=== PATIENT | female | born 1940 | race Caucasian/White ===

== ENCOUNTER → 2017-03-05 | Outpatient (CLI) | payer OTHER ==
[~2017-03-05] MED LIST: ATOR10TA9 PO; CALC1CAP8 PO; CHOL200074 PO; CLON0.12 PO; ESCI20TA10 PO; HYDR-3237 PO; IBAN150T PO; LEVO50TA5 PO; LEVO75TA5 PO; OLME40TA12 PO; OMEP-110 PO; PROP80CA39 PO; VALA500T4 PO; VIT1TABL32 PO; ZOLP10TA5 PO
== END | disposition home or self-care (01) ==
LOC: CFH 11:31
PROVIDERS: ATTEND Family Medicine
DX: Z13.820 Encounter for screening for osteoporosis (principal); Z12.31 Encounter for screening mammogram for malignant neoplasm of breast; M85.80 Other specified disorders of bone density and structure, unspecified site; N95.0 Postmenopausal bleeding
CPT/HCPCS: 76830; 77080; G0202

== ENCOUNTER 2017-04-14 08:36 | Inpatient (IN) | payer OTHER, MEDICARE ==
[~2017-04-14] VITALS: Ht 162.6 cm; Wt 75.7 kg
[2017-04-14 08:57] LABS: BASOPHILS # (AUTO) 0.02 x10^3/uL (0-0.1); BASOPHILS % (AUTO) 0 % (0-1); EOSINOPHILS # (AUTO) 0.03 x10^3/uL (0-0.4); EOSINOPHILS % (AUTO) 0 % (1-7); LYMPHOCYTES # (AUTO) 1.76 x10^3/uL (1-3.4); LYMPHOCYTES % (AUTO) 24 % (22-44); MD NO; MEAN CORPUSCULAR HEMOGLOBIN 30.2 pg (27.0-34.8); MEAN CORPUSCULAR HGB CONC 33.7 g/dL (32.4-35.8); MEAN CORPUSCULAR VOLUME 89.7 fL (80-100); MEAN PLATELET VOLUME 10.5 fL (7.4-10.4); MONOCYTES # (AUTO) 0.53 x10^3/uL (0.2-0.8); MONOCYTES % (AUTO) 7 % (2-9); NEUTROPHILS # (AUTO) 5.08 x10^3/uL (1.8-6.8); NEUTROPHILS % (AUTO) 68 % (42-75); PLATELET COUNT 140 x10^3/uL (130-400); RED BLOOD COUNT 5.03 x10^6/uL (3.82-5.3); RED CELL DISTRIBUTION WIDTH 14.6 % (9.6-15.2)
[2017-04-14] MEDS ORDERED: SODIUM CHLORIDE 0.9% 1,000ML IVBOLUS ONE (09:00)
[2017-04-14 09:05] LABS: INTERNATIONAL NORMALIZED RATIO 1.03 (0.93-1.1); PROTHROMBIN TIME 10.7 Seconds (9.6-11.5)
[2017-04-14 09:07] LABS: ALBUMIN 3.4 g/dL (3.4-5.0); ANION GAP 8 mmol/L (5-15); CALCIUM 8.1 mg/dL (8.5-10.1); CHLORIDE 105 mmol/L (98-107)
[2017-04-14 09:11] LABS: TROPONIN I < 0.015 ng/mL (0.000-0.045)
[2017-04-14] MEDS ORDERED: PRIM50TA PO (09:14)
[2017-04-14] MEDS ORDERED: ARIP2TAB2 PO (09:14)
[2017-04-14] MEDS ORDERED: POLY17PO5 PO (09:14)
[2017-04-14] MEDS ORDERED: VIT1CAPS42 PO (09:14)
[2017-04-14] MEDS ORDERED: ESCI20TA10 PO (09:14)
[2017-04-14] MEDS ORDERED: MORPHINE SULFATE 4 MG/ML, 1ML ONE (10:07)
[2017-04-14] MEDS ORDERED: ALBUTEROL/IPRATROPIUM 2.5MG/0.5MG, 3 ML ONE (10:22)
[2017-04-14] MEDS ORDERED: MORPHINE SULFATE 4 MG/ML, 1ML IVPush PRN ×3 (10:30→11:30)
[2017-04-14] MEDS ORDERED: ALBUTEROL/IPRATROPIUM 2.5MG/0.5MG, 3 ML NPPB ONE (10:30)
[2017-04-14] MEDS ORDERED: LIDOCAINE 1%, 10ML ONE (10:31)
[2017-04-14] MEDS ORDERED: SODIUM CHLORIDE 0.9% 1,000 ML IV SCH (10:54)
[2017-04-14] MEDS ORDERED: ENALAPRILAT 1.25 MG/ML, 2ML IVPush PRN (11:00)
[2017-04-14] MEDS ORDERED: LIDOCAINE 2%, 20ML SQ ONE (11:00)
[2017-04-14] MEDS ORDERED: BISACODYL 10 MG SUPP PR PRN (11:00)
[2017-04-14] MEDS ORDERED: POLYETHYLENE GLYCOL 17 GM PACKET PO PRN (11:00)
[2017-04-14] MEDS ORDERED: hydrALAzine 20 MG/ML, 1ML IVPush PRN (11:00)
[2017-04-14] MEDS ORDERED: ONDANSETRON 2MG/ML, 2ML IVPush PRN ×2 (11:00→15:30)
[2017-04-14] MEDS ORDERED: ACETAMINOPHEN 325 MG TABLET PO PRN (11:00)
[2017-04-14 12:00] VITALS: BP 148/82
[2017-04-14 12:14] LABS: HEMOGLOBIN A1C 5.9 % (4.2-6.3)
[2017-04-14 12:25] LABS: FREE T4 (FREE THYROXINE) 1.21 ng/dL (0.76-1.46); THYROID STIMULATING HORMONE 0.53 mIU/L (0.358-3.740)
[2017-04-14] MEDS ORDERED: POTASSIUM CHLORIDE 40 MEQ in SODIUM CHLORIDE 0.9% 500 ML IV ONE (12:34)
[2017-04-14 13:28] LABS: RAPID INFLUENZA A Negative (Negative); RAPID INFLUENZA B Negative (Negative)
[2017-04-14] MEDS ORDERED: BUPIVACAINE/PF 0.5% ONE (13:47)
[2017-04-14] MEDS ORDERED: EPINEPHRINE 1 MG/ML, 1ML ONE (13:48)
[2017-04-14] MEDS ORDERED: DOXYCYCLINE 100 MG in DEXTROSE 5% 250 ML IV ONE (14:00)
[2017-04-14] MEDS ORDERED: PROPOFOL 10 MG/ML, 20ML ONE (14:35)
[2017-04-14] MEDS ORDERED: DEXAMETHASONE 4 MG/ML, 1ML ONE (14:35)
[2017-04-14] MEDS ORDERED: ONDANSETRON 2MG/ML, 2ML ONE (14:35)
[2017-04-14] MEDS ORDERED: FENTANYL PF 250 MCG/5ML ONE (14:36)
[2017-04-14] MEDS ORDERED: HYDROmorphone 1 MG/ML, 1ML IV PRN (15:30)
[2017-04-14] MEDS ORDERED: LABETALOL 5MG/ML, 20ML IV PRN (15:30)
[2017-04-14] MEDS ORDERED: OXYcodone 5 MG/5 ML ORAL.SOL UDC PO PRN (15:30)
[2017-04-14] MEDS ORDERED: hydrALAzine 20 MG/ML, 1ML IV PRN (15:30)
[2017-04-14] MEDS ORDERED: FENTANYL PF 100 MCG/2ML IV PRN (15:30)
[2017-04-14] MEDS ORDERED: OXYcodone 5 MG/5 ML ORAL.SOL UDC ONE (15:57)
[2017-04-14] MEDS ORDERED: CEFAZOLIN PMX 1GM/50ML 50 ML IV SCH (16:00)
[2017-04-14] MEDS ORDERED: hydrALAzine 20 MG/ML, 1ML ONE (16:32)
[2017-04-14] MEDS ORDERED: ALBUTEROL SULFATE 2.5 MG/3 ML ONE (16:51)
[2017-04-14] MEDS ORDERED: ALBUTEROL SULFATE 2.5 MG/3 ML NPPB PRN (17:00)
[2017-04-14] MEDS: VALACYCLOVIR 500MG TABLET PO SCH (17:27)
[2017-04-14 18:55] VITALS: BP 128/73
[2017-04-14] MEDS ORDERED: TEMPLATE NON-FORMULARY MED. (Escitalopram Oxalate** (Lexapro**) 20 MG) PO SCH (21:00)
[2017-04-14] MEDS: CEFAZOLIN PMX 1GM/50ML 50 ML IV SCH (22:16)
[2017-04-14] MEDS: ATORVASTATIN 10 MG TABLET PO SCH (22:16)
[2017-04-14] MEDS: KETOROLAC 30 MG/1 ML IM PRN (22:16)
[2017-04-14] MEDS: HYDROcodone/APAP 5/325 TABLET PO PRN (22:17)
[2017-04-14] MEDS: PRIMIDONE 50 MG TABLET PO SCH (22:29)
[2017-04-14] MEDS: CITALOPRAM 20 MG TABLET PO SCH (22:29)
[2017-04-14] MEDS: ARIPIPRAZOLE 2 MG TABLET PO SCH (22:29)
[2017-04-14 23:19] VITALS: BP 121/67
[2017-04-14] MEDS: DOXYCYCLINE 100MG TABLET PO SCH (23:30)
[2017-04-15 01:42] LABS: CULTURE INDICATED? YES; MICROSCOPIC INDICATED
[2017-04-15 02:49] VITALS: BP 111/58
[2017-04-15] MEDS: KETOROLAC 30 MG/1 ML IM PRN ×2 (04:06→19:20)
[2017-04-15] MEDS: HYDROcodone/APAP 5/325 TABLET PO PRN ×2 (04:06→19:20)
[2017-04-15 05:46] LABS: BASOPHILS # (AUTO) 0.01 x10^3/uL (0-0.1); BASOPHILS % (AUTO) 0 % (0-1); EOSINOPHILS % (AUTO) 0 % (1-7); LYMPHOCYTES # (AUTO) 0.84 x10^3/uL (1-3.4); LYMPHOCYTES % (AUTO) 12 % (22-44); MD NO; MEAN CORPUSCULAR HEMOGLOBIN 30.5 pg (27.0-34.8); MEAN CORPUSCULAR HGB CONC 33.7 g/dL (32.4-35.8); MEAN CORPUSCULAR VOLUME 90.6 fL (80-100); MEAN PLATELET VOLUME 11.7 fL (7.4-10.4); MONOCYTES # (AUTO) 0.66 x10^3/uL (0.2-0.8); MONOCYTES % (AUTO) 9 % (2-9); NEUTROPHILS # (AUTO) 5.47 x10^3/uL (1.8-6.8); NEUTROPHILS % (AUTO) 78 % (42-75); PLATELET COUNT 124 x10^3/uL (130-400); RED BLOOD COUNT 4.29 x10^6/uL (3.82-5.3); RED CELL DISTRIBUTION WIDTH 15.1 % (9.6-15.2)
[2017-04-15 05:50] LABS: CHLORIDE 112 mmol/L (98-107)
[2017-04-15 06:00] LABS: ALANINE AMINOTRANSFERASE 57 U/L (12-78); ALBUMIN 2.9 g/dL (3.4-5.0); ALKALINE PHOSPHATASE 71 U/L (45-117); ANION GAP 7 mmol/L (5-15); BILIRUBIN,TOTAL 0.5 mg/dL (0.2-1.0); CHOL/HDL RATIO 2.3; CHOLESTEROL, TOTAL 95 mg/dL (140-239); CREATININE 0.67 mg/dL (0.55-1.02); HDL CHOL % 44 % (28-40); HDL CHOLESTEROL (DIRECT) 42 mg/dL (40-60); LDL CHOLESTEROL,CALCULATED 40 mg/dL (54-169); TRIGLYCERIDES 65 mg/dL (50-200); VLDL CHOLESTEROL 13 mg/dL (0-25)
[2017-04-15] MEDS: CEFAZOLIN PMX 1GM/50ML 50 ML IV SCH (06:52)
[2017-04-15] MEDS: LEVOTHYROXINE 75 MCG TABLET PO SCH (06:52)
[2017-04-15 06:58] VITALS: BP 122/66
[2017-04-15] MEDS: ARIPIPRAZOLE 2 MG TABLET PO SCH (08:55)
[2017-04-15] MEDS: POLYETHYLENE GLYCOL 17 GM PACKET PO SCH (08:56)
[2017-04-15] MEDS: CITALOPRAM 20 MG TABLET PO SCH (08:56)
[2017-04-15] MEDS: DOXYCYCLINE 100MG TABLET PO SCH ×2 (08:57→22:45)
[2017-04-15] MEDS: SENNA/DOCUSATE TABLET PO SCH (08:57)
[2017-04-15] MEDS: VALACYCLOVIR 500MG TABLET PO SCH (08:57)
[2017-04-15] MEDS ORDERED: CHOLECALCIFEROL 1,000 UNIT TABLET PO SCH (09:00)
[2017-04-15] MEDS ORDERED: TEMPLATE NON-FORMULARY MED. (Escitalopram Oxalate** (Lexapro**) 20 MG) PO SCH (09:00)
[2017-04-15] MEDS: TEMPLATE NON-FORMULARY MED. (Vit A,C & E/Lutein/Minerals** (Ocuvite Tablet**) 1 TAB) PO SCH (09:00)
[2017-04-15] MEDS ORDERED: DOXYCYCLINE 100MG TABLET PO SCH (09:00)
[2017-04-15] MEDS: TEMPLATE NON-FORMULARY MED. (Vit C/E/Zn/Coppr/Lutein/Zeaxan** (Preservision Areds 2 Softge PO SCH (09:00)
[2017-04-15] MEDS ORDERED: ERGOCALCIFEROL 50,000 UNIT CAPSULE PO SCH (10:00)
[2017-04-15 14:31] VITALS: BP 115/67
[2017-04-15 20:10] VITALS: BP 149/79
[2017-04-15] MEDS: ATORVASTATIN 10 MG TABLET PO SCH (22:45)
[2017-04-15] MEDS: PRIMIDONE 50 MG TABLET PO SCH (22:46)
[2017-04-16 02:21] VITALS: BP 102/61
[2017-04-16] MEDS: HYDROcodone/APAP 5/325 TABLET PO PRN ×3 (04:39→23:55)
[2017-04-16] MEDS: KETOROLAC 30 MG/1 ML IM PRN ×3 (04:39→18:13)
[2017-04-16] MEDS: LEVOTHYROXINE 75 MCG TABLET PO SCH (04:59)
[2017-04-16 07:51] VITALS: BP 104/58
[2017-04-16] MEDS: PRIMIDONE 50 MG TABLET PO SCH (09:00)
[2017-04-16] MEDS: SENNA/DOCUSATE TABLET PO SCH (09:00)
[2017-04-16] MEDS: CITALOPRAM 20 MG TABLET PO SCH (09:00)
[2017-04-16] MEDS: VALACYCLOVIR 500MG TABLET PO SCH (09:00)
[2017-04-16] MEDS: TEMPLATE NON-FORMULARY MED. (Vit C/E/Zn/Coppr/Lutein/Zeaxan** (Preservision Areds 2 Softge PO SCH (09:00)
[2017-04-16] MEDS: TEMPLATE NON-FORMULARY MED. (Vit A,C & E/Lutein/Minerals** (Ocuvite Tablet**) 1 TAB) PO SCH (09:00)
[2017-04-16] MEDS: ENOXAPARIN 40 MG/0.4 ML SQ SCH (09:50)
[2017-04-16] MEDS: POLYETHYLENE GLYCOL 17 GM PACKET PO SCH (09:52)
[2017-04-16] MEDS: DOXYCYCLINE 100MG TABLET PO SCH ×2 (09:52→21:26)
[2017-04-16 12:49] VITALS: BP 119/58
[2017-04-16 20:20] VITALS: BP 138/71
[2017-04-16] MEDS: ATORVASTATIN 10 MG TABLET PO SCH (21:26)
[2017-04-16] MEDS: ARIPIPRAZOLE 2 MG TABLET PO SCH (21:26)
[2017-04-17 03:10] VITALS: BP 135/70
[2017-04-17] MEDS: LEVOTHYROXINE 75 MCG TABLET PO SCH (06:15)
[2017-04-17 07:20] VITALS: BP 158/83
[2017-04-17] MEDS: CITALOPRAM 20 MG TABLET PO SCH (09:00)
[2017-04-17] MEDS: TEMPLATE NON-FORMULARY MED. (Vit A,C & E/Lutein/Minerals** (Ocuvite Tablet**) 1 TAB) PO SCH (09:00)
[2017-04-17] MEDS: TEMPLATE NON-FORMULARY MED. (Vit C/E/Zn/Coppr/Lutein/Zeaxan** (Preservision Areds 2 Softge PO SCH (09:00)
[2017-04-17] MEDS: VALACYCLOVIR 500MG TABLET PO SCH (09:00)
[2017-04-17] MEDS: SENNA/DOCUSATE TABLET PO SCH (09:57)
[2017-04-17] MEDS: DOXYCYCLINE 100MG TABLET PO SCH (09:59)
[2017-04-17] MEDS: POLYETHYLENE GLYCOL 17 GM PACKET PO SCH (09:59)
[2017-04-17] MEDS: ENOXAPARIN 40 MG/0.4 ML SQ SCH (10:00)
[2017-04-17] MEDS ORDERED: ERGO500017 PO (11:17)
[2017-04-17] MEDS ORDERED: KETO10TA PO (11:17)
[2017-04-17] MEDS ORDERED: SENN1TAB7 PO (11:17)
[2017-04-17] MEDS ORDERED: ALBU2.5V NPPB (11:17)
[2017-04-17] MEDS ORDERED: DOXY100T PO (11:17)
[2017-04-17] MEDS ORDERED: CITA20TA9 PO (11:17)
[2017-04-17] MEDS ORDERED: POLY17PO5 PO (11:17)
[2017-04-17] MEDS ORDERED: ACET325T14 PO (11:17)
[2017-04-17] MEDS ORDERED: MAGNESIUM CITRATE 300ML ORAL SOL PO ONE (11:30)
[2017-04-17 14:56] VITALS: BP 150/84
[2017-04-17] MEDS ORDERED: ENOX40SY4 SQ (16:15)
== END 2017-04-17 17:14 | DRG 907 ==
LOC: ED 09:56 → EDIP 10:09 → 4NOR 12:00
PROVIDERS: ADMIT Internal Medicine; ATTEND Internal Medicine
PROC: 0PSH04Z Reposition Right Radius with Internal Fixation Device, Open Approach (ICD-10-PCS; 2017-04-14)
PROC: 0PSKXZZ Reposition Right Ulna, External Approach (ICD-10-PCS; 2017-04-14)
PROC: 2W38X1Z Immobilization of Right Upper Extremity using Splint (ICD-10-PCS; 2017-04-14)
PROC: 0PSHXZZ Reposition Right Radius, External Approach (ICD-10-PCS; principal; 2017-04-14 13:45)
PROC: 0QH604Z Insertion of Internal Fixation Device into Right Upper Femur, Open Approach (ICD-10-PCS; 2017-04-14 13:45)
DX: T42.6X1A Poisoning by other antiepileptic and sedative-hypnotic drugs, accidental (unintentional), initial encounter (principal); S72.001A Fracture of unspecified part of neck of right femur, initial encounter for closed fracture; J96.01 Acute respiratory failure with hypoxia; G20 Parkinson's disease; S09.90XA Unspecified injury of head, initial encounter; S52.501A Unspecified fracture of the lower end of right radius, initial encounter for closed fracture; S52.611A Displaced fracture of right ulna styloid process, initial encounter for closed fracture; W19.XXXA Unspecified fall, initial encounter; E03.9 Hypothyroidism, unspecified; E55.9 Vitamin D deficiency, unspecified; E78.5 Hyperlipidemia, unspecified; E87.6 Hypokalemia; F32.9 Major depressive disorder, single episode, unspecified; F41.9 Anxiety disorder, unspecified; G25.0 Essential tremor; I10 Essential (primary) hypertension; K21.9 Gastro-esophageal reflux disease without esophagitis; M19.90 Unspecified osteoarthritis, unspecified site; M81.0 Age-related osteoporosis without current pathological fracture; S00.11XA Contusion of right eyelid and periocular area, initial encounter; Z96.651 Presence of right artificial knee joint; J02.9 Acute pharyngitis, unspecified; R55 Syncope and collapse; Y92.009 Unspecified place in unspecified non-institutional (private) residence as the place of occurrence of the external cause; Z90.49 Acquired absence of other specified parts of digestive tract
CPT/HCPCS: 36415; 70450; 71045; 76001; 80048; 80053; 80061; 81001; 82040; 82306; 82607; 82962; 83036; 83735; 83880; 84439; 84443; 84484; 85025; 85610; 85730; 87086; 87400; 93005; 94640; C1713; J0171; J0690; J1100; J1650; J1885; J2405; J2704; J3010; J3480; J3490; J7620; J0360; J7030; J7040

== ENCOUNTER 2017-09-22 10:36 | Emergency (ER) | payer MEDICARE, OTHER ==
[~2017-09-22] VITALS: Ht 162.6 cm; Wt 67.0 kg
[~2017-09-22 10:36] MED LIST changes: +ACET325T14 PO; +ALBU2.5V NPPB; +ARIP2TAB2 PO; +CITA20TA9 PO; +DOXY100T PO; +ENOX40SY4 SQ; +ERGO500017 PO; +KETO10TA PO; +POLY17PO5 PO; +PRIM50TA PO; +SENN1TAB7 PO; +VIT1CAPS42 PO
[2017-09-22 10:38] VITALS: BP 152/87
[2017-09-22] MEDS ORDERED: DIAZEPAM 5 MG TABLET ONE (11:11)
[2017-09-22] MEDS ORDERED: HYDROmorphone 2 MG/ML, 1ML ONE (11:11)
[2017-09-22] MEDS ORDERED: KETOROLAC 30 MG/1 ML ONE (11:11)
[2017-09-22] MEDS ORDERED: HYDROmorphone 1 MG/ML, 1ML IM ONE (11:30)
[2017-09-22] MEDS ORDERED: DIAZEPAM 5 MG TABLET PO ONE (11:30)
[2017-09-22] MEDS ORDERED: KETOROLAC 30 MG/1 ML IM ONE (11:30)
== END 2017-09-22 11:58 | disposition home or self-care (01) ==
LOC: ED 10:59
DX: S39.012A Strain of muscle, fascia and tendon of lower back, initial encounter (principal); I10 Essential (primary) hypertension; E78.00 Pure hypercholesterolemia, unspecified; E03.9 Hypothyroidism, unspecified; K21.9 Gastro-esophageal reflux disease without esophagitis; G20 Parkinson's disease; X58.XXXA Exposure to other specified factors, initial encounter; Y93.89 Activity, other specified; Y92.89 Other specified places as the place of occurrence of the external cause; Y99.8 Other external cause status
CPT/HCPCS: 96372; 99284; J1170; J1885; J7512

== ENCOUNTER → 2017-11-29 | Outpatient (CLI) | payer OTHER ==
[~2017-11-29] MED LIST changes: +CLON0.5T11 PO; +GABA300C10 PO; +MULT-108 PO; +ZOLP10TA PO; +lidocaine patch TD
== END | disposition home or self-care (01) ==
LOC: STAR 11:17
PROVIDERS: ATTEND Orthopaedic Surgery
DX: Z01.818 Encounter for other preprocedural examination (principal); S72.041D Displaced fracture of base of neck of right femur, subsequent encounter for closed fracture with routine healing; X58.XXXD Exposure to other specified factors, subsequent encounter
CPT/HCPCS: 93005

== ENCOUNTER 2017-12-11 05:41 | Day surgery (SDC) | payer OTHER ==
[~2017-12-11] VITALS: Ht 162.6 cm; Wt 70.0 kg
[~2017-12-11 05:41] MED LIST changes: -SENN1TAB7 PO; +SENN1TAB8 PO
[2017-12-11] MEDS ORDERED: LACTATED RINGERS 1,000 ML IV SCH (06:04)
[2017-12-11 06:05] VITALS: BP 139/93
[2017-12-11] MEDS ORDERED: LIDOCAINE-MPF 1%, 2ML INFIL ONE (06:30)
[2017-12-11] MEDS ORDERED: FENTANYL PF 100 MCG/2ML ONE ×2 (06:48→07:51)
[2017-12-11] MEDS ORDERED: CEFAZOLIN 1,000 MG ONE (06:50)
[2017-12-11] MEDS ORDERED: LIDOCAINE-MPF 2% ,5ML ONE (06:50)
[2017-12-11] MEDS ORDERED: PROPOFOL 10 MG/ML, 20ML ONE (06:50)
[2017-12-11] MEDS ORDERED: BUPIVACAINE/PF-EPI 0.5% 1:200K INFIL ONE (07:15)
[2017-12-11] MEDS ORDERED: ONDANSETRON 2MG/ML, 2ML IV PRN (07:30)
[2017-12-11] MEDS ORDERED: PROMETHAZINE 12.5 MG SUPP PR PRN (07:30)
[2017-12-11] MEDS ORDERED: MORPHINE SULFATE 4 MG/ML, 1ML IVPush PRN (07:30)
[2017-12-11] MEDS ORDERED: PROMETHAZINE 25 MG SUPP PR PRN (07:30)
[2017-12-11] MEDS ORDERED: OXYcodone 5 MG/5 ML ORAL.SOL UDC PO PRN (07:30)
[2017-12-11] MEDS ORDERED: FENTANYL PF 100 MCG/2ML IV PRN (07:30)
[2017-12-11] MEDS ORDERED: ACETAMINOPHEN 325 MG TABLET PO PRN (07:30)
[2017-12-11] MEDS ORDERED: ONDANSETRON ODT 8 MG PO PRN (07:30)
[2017-12-11] MEDS ORDERED: PROMETHAZINE 25 MG/ML, 1ML IV PRN (07:30)
[2017-12-11] MEDS ORDERED: ACETAMINOPHEN 650 MG/20.3 ML UDC ONE (07:50)
[2017-12-11] MEDS ORDERED: OXYcodone 5 MG/5 ML ORAL.SOL UDC ONE (07:51)
== END 2017-12-11 09:50 | disposition home or self-care (01) ==
LOC: OUT 05:41
PROVIDERS: ATTEND Orthopaedic Surgery
DX: T84.84XA Pain due to internal orthopedic prosthetic devices, implants and grafts, initial encounter (principal); G89.18 Other acute postprocedural pain; E78.5 Hyperlipidemia, unspecified; M19.90 Unspecified osteoarthritis, unspecified site; Y83.1 Surgical operation with implant of artificial internal device as the cause of abnormal reaction of the patient, or of later complication, without mention of misadventure at the time of the procedure; Y92.89 Other specified places as the place of occurrence of the external cause; Z98.890 Other specified postprocedural states; Z79.899 Other long term (current) drug therapy
CPT/HCPCS: 20680; 73501; 76000; J0690; J2704; J3010; J3490; J7120

== ENCOUNTER 2017-12-14 12:26 | Emergency (ER) | payer OTHER, MEDICARE ==
[~2017-12-14] VITALS: Ht 162.6 cm; Wt 72.8 kg
[2017-12-14] MEDS ORDERED: BISACODYL 5 MG EC TABLET ONE (12:56)
[2017-12-14] MEDS ORDERED: METHYLNALTREXONE 12 MG/0.6 ML SQ ONE ×2 (12:56→13:00)
[2017-12-14] MEDS ORDERED: PINK LADY ENEMA 490 ML BOTTLE PR ONE (13:00)
[2017-12-14] MEDS ORDERED: BISACODYL 5 MG EC TABLET PO ONE (13:00)
[2017-12-14] MEDS ORDERED: ONDANSETRON ODT 4 MG ONE (15:15)
[2017-12-14] MEDS ORDERED: ONDANSETRON ODT 4 MG PO ONE (15:30)
[2017-12-14] MEDS ORDERED: ACETAMINOPHEN 500 MG TABLET ONE (15:45)
[2017-12-14] MEDS ORDERED: ACETAMINOPHEN 500 MG TABLET PO ONE (16:00)
[2017-12-14 16:04] VITALS: BP 140/60
[2017-12-16] MEDS ORDERED: methylPREDNISolone SOD SUCC 125 MG/2 ML ONE (11:47)
[2017-12-16] MEDS ORDERED: FAMOTIDINE 20 MG/2 ML ONE (11:48)
[2017-12-18] MEDS ORDERED: METOCLOPRAMIDE 5 MG/ML, 2ML ONE (06:33)
[2017-12-18] MEDS ORDERED: KETOROLAC 30 MG/1 ML ONE (06:33)
== END 2017-12-14 16:03 | disposition home or self-care (01) ==
LOC: ED 13:09 → EDIP 15:12 → UNDOADMIN 15:12 → ED 16:03
DX: K59.00 Constipation, unspecified (principal); R10.84 Generalized abdominal pain; K21.9 Gastro-esophageal reflux disease without esophagitis; F32.9 Major depressive disorder, single episode, unspecified; E03.9 Hypothyroidism, unspecified; E78.00 Pure hypercholesterolemia, unspecified; I10 Essential (primary) hypertension; Z90.49 Acquired absence of other specified parts of digestive tract
CPT/HCPCS: 74018; 96372; 99284; Q0162